=== PATIENT | female | born 1935 | race Caucasian/White ===

== ENCOUNTER 2020-05-14 15:05 | Inpatient (IN) | payer MEDICARE, OTHER ==
[~2020-05-14] VITALS: Ht 165.1 cm; Wt 81.5 kg
[2020-05-14] MEDS ORDERED: HYDR-4833 (15:32)
[2020-05-14] MEDS ORDERED: CLON0.1D7 TD ×2 (15:32→19:20)
[2020-05-14] MEDS ORDERED: HYDROcodone-ACET 5/325MG TAB PO ONE (15:45)
[2020-05-14] MEDS ORDERED: cefTRIAXone SOD 1,000 MG VL IM ONE (15:45)
[2020-05-14] MEDS ORDERED: CLINDAMYCIN 600MG IV 50 ML IV ONE (16:00)
[2020-05-14 16:38] LABS: Basophils # (auto) 0.1 10 ^3/uL (0-0.2); Eosinophils # (auto) 0.2 10 ^3/uL (0-0.8); Eosinophils % (auto) 2.8 % (0.0-7.0); Hematocrit 40.2 % (36.0-46.0); Hemoglobin 13.2 g/dL (12.2-16.2); Lymphocytes # (auto) 1.2 10 ^3/uL (0.4-5.4); Lymphocytes % (auto) 15.8 % (10.0-50.0); Mean Corpuscular Hemoglobin 28.9 pg (28.0-32.0); Mean Corpuscular Hgb Conc. 32.8 g/dL (32.0-36.0); Mean Corpuscular Volume 88.1 fL (80.0-100.0); Monocytes # (auto) 0.7 10 ^3/uL (0-1.3); Monocytes % (auto) 8.7 % (0.0-12.0); Neutrophils # (auto) 5.5 10 ^3/uL (1.6-8.6); Neutrophils % (auto) 71.7 % (37.0-80.0); Platelet Count (auto) 211 10^3/uL (140-450); Red Blood Cells 4.56 10^6/uL (4.0-5.20); Red Cell Distribution Width 13.4 % (11.8-14.3); White Blood Cell 7.6 10^3/uL (4.4-10.8)
[2020-05-14 16:54] LABS: Albumin 3.5 g/dL (3.4-5.0); Calcium 8.3 mg/dL (8.5-10.1); Potassium 4.1 mmol/L (3.5-5.1)
[2020-05-14 16:58] LABS: BUN/Creatinine Ratio 22.4; Bilirubin, Total 0.3 mg/dL (0.2-1.0); Total Protein 7.8 g/dL (6.4-8.2)
[2020-05-14 17:02] LABS: INR 0.96 (0.9-1.15); Partial Thromboplastin Time 26.2 sec (23.64-32.05)
[2020-05-14] MEDS: SODIUM CHLORIDE 0.9% 1,000 ML IV SCH (17:05)
[2020-05-14] MEDS ORDERED: DEXTROSE (50%) 50ML SYRG IV PRN (17:15)
[2020-05-14] MEDS ORDERED: LACTULOSE 20Gm/30ML SOLN PO PRN (17:15)
[2020-05-14] MEDS ORDERED: ACETAMINOPHEN 500 MG TAB PO PRN (17:15)
[2020-05-14] MEDS ORDERED: MORPHINE SULF INJ 2 MG/ML SYRINGE 1ML IV PRN (17:15)
[2020-05-14] MEDS ORDERED: NITROGLYCERIN 0.4 MG SL TAB SL PRN (17:15)
--- NOTE | 2020-05-14 18:20 | NUR ---
Telemetry admit from ER ALANNA MEI admitted to Telemetry unit NO SBAR received. Patient oriented to Mirtha costa RN, [facility], room 289 A, and unit policies regarding patient care and visiting hours. Patient now on continuous telemetry monitoring, tele box # [id number]. All questions and concerns addressed, patient verbalized understanding. Note:Bed locked in lowest position with two side rails up and call light in reach. Instructed patient to remain NPO until is it certain she is going to surgery at 1930, ass per Sharepoint Application Developer Lily.
[2020-05-14] MEDS ORDERED: PROPOFOL 10 MG/ML 20 ML IV ONE (18:59)
[2020-05-14] MEDS ORDERED: SODIUM CHLORIDE LOCK 10 ML ONE ×2 (18:59→20:28)
[2020-05-14] MEDS ORDERED: ONDANSETRON HCL 4 MG/2 ML VIAL ONE (18:59)
[2020-05-14] MEDS ORDERED: MIDAZOLAM HCL 1MG/1ML-2 ML VIAL ONE (18:59)
[2020-05-14] MEDS ORDERED: fentaNYL CITRATE 100 MCG/2 ML VL ONE ×2 (18:59→20:40)
--- NOTE | 2020-05-14 19:25 | NUR ---
Pt is out of unit for surgery. Patient is stable. No respiratory distress noted.
[2020-05-14] MEDS ORDERED: ceFAZolin 1GM/50ML 50 ML IV ONE (19:27)
[2020-05-14] MEDS ORDERED: ceFAZolin 1GM VL ONE (19:42)
[2020-05-14] MEDS ORDERED: ROPIVACAINE 0.5% (5MG/ML) 20ML AMPULE IJ ONE (19:42)
[2020-05-14] MEDS ORDERED: fentaNYL CITRATE 100 MCG/2 ML VL IV PRN (19:45)
[2020-05-14] MEDS ORDERED: ACCU-CHEK COMFORT CURVE STRIP VI ONE (19:45)
[2020-05-14] MEDS ORDERED: ONDANSETRON HCL 4 MG/2 ML VIAL IV PRN (19:45)
[2020-05-14] MEDS ORDERED: HYDROmorphone HCL 2 MG/ML VL IV PRN (19:45)
[2020-05-14] MEDS ORDERED: MORPHINE SULFATE 4 MG/ML SYR/VIAL IV PRN (19:45)
[2020-05-14 20:00] VITALS: BP 157/67
[2020-05-14] MEDS ORDERED: LABETALOL HCL 5 MG/ML ML 20ML VIAL IV ONE (20:09)
[2020-05-14] MEDS ORDERED: hydrALAZINE HCL 20 MG/ML VL ONE (20:09)
[2020-05-14] MEDS ORDERED: ACETAMINOPHEN IV 100 ML IV ONE (20:23)
[2020-05-14] MEDS ORDERED: MORPHINE SULFATE INJECTION 1 ML ONE (20:28)
[2020-05-14] MEDS ORDERED: ESMOLOL HCL 10 ML IV ONE (20:28)
[2020-05-14] MEDS ORDERED: NITROGLYCERIN 2% OINT 1GM PKG TD ONE (20:45)
[2020-05-14] MEDS ORDERED: METOPROLOL TARTRATE 1MG/1ML-5ML VIAL IV ONE (21:27)
[2020-05-14] MEDS ORDERED: ENOXAPARIN SOD 40 MG/0.4 ML SYRINGE SC ONE ×2 (21:30→21:31)
--- NOTE | 2020-05-14 21:40 | NUR ---
Pt back to unit. Patient back to unit from surgery. No respiratory distress. Patient on 4 LPM NC with respirations 16 bpm and SpO2 95%. BP 157/67 mmHg. Arousal by name. Fluffy dressing on R. Leg with small amount of drainage. Circled. Will continue to monitor as needed or Q30min. Addendum: 05/15/20 at 0201 by NAJMA HARPER RN RN Dressing on L.foot.
[2020-05-14 22:00] VITALS: BP 154/74
[2020-05-14] MEDS: InsuLIN REG 1unit/0.01ml Soln (100units/ml) SC SCH (22:00)
--- NOTE | 2020-05-14 22:30 | NUR ---
Refused med Patient blood glucose level is 242 mg/dL. Patient refused insulin saying that her body work to lower it to normal level. Education regarding possible complications from high glucose level and the ways how to lower blood glucose level were given to patient. Patient continues to refuse the treatment. Insulin shot was not given at this time. Will continue to monitor patient condition.
[2020-05-14] MEDS: ACCU-CHEK COMFORT CURVE STRIP VI SCH (23:05)
[2020-05-14] MEDS: CLINDAMYCIN 600MG IV 50 ML IV SCH (23:06)
[2020-05-15] VITALS (7 sets, daily range): BP systolic 147–168; BP diastolic 57–98
--- NOTE | 2020-05-15 00:15 | NUR ---
Blood pressure is 160/79. PAGED HOSPITALIST.
--- NOTE | 2020-05-15 00:50 | NUR ---
Spoke to hospitalist. Spoke to hospitalist regarding pt's blood pressure. New order received. Verified and read back.
[2020-05-15] MEDS: MORPHINE SULF INJ 2 MG/ML SYRINGE 1ML IV PRN ×4 (01:06→22:21)
[2020-05-15] MEDS: ONDANSETRON HCL 4 MG/2 ML VIAL IV PRN ×2 (01:07→08:08)
[2020-05-15] MEDS ORDERED: cloNIDine HCL 0.1 MG TAB PO ONE (01:30)
[2020-05-15] MEDS: SODIUM CHLORIDE 0.9% 1,000 ML IV SCH ×2 (03:10→13:06)
[2020-05-15] MEDS: CLINDAMYCIN 600MG IV 50 ML IV SCH ×3 (06:10→22:08)
[2020-05-15] MEDS: ACCU-CHEK COMFORT CURVE STRIP VI SCH ×4 (06:47→22:08)
[2020-05-15] MEDS: InsuLIN REG 1unit/0.01ml Soln (100units/ml) SC SCH ×4 (06:56→22:21)
--- NOTE | 2020-05-15 07:40 | NUR ---
Opening Shift Note Assumed care of patient, awake and alert. No S/S of distress/SOB or pain. Instructed on POC and to call for assist PRN, will continue to monitor for changes Q1hr and PRN. Bed locked in lowest position with two side rails up and call light in reach.
[2020-05-15] MEDS: cefTRIAXone 1GM/50ML D5W 50 ML IV SCH (08:08)
--- NOTE | 2020-05-15 10:00 | NUR ---
PATIENT COMPLAINING OF PAIN AND BURNING TO THE LEFT FOOT. MEDICATED PATIENT PER EMAR, ELEVATED FOOT, ASSESSED FOR CAP REFILL WHICH IS <3 SEC COLORING TO FOOT WNL PULSES BILATERALLY EQUAL. SUPPLIED AN ICE PACK FOR PATIENT AND PAGED DR MORRIS. WILL AWAIT RETURN CALL.
[2020-05-15] MEDS: HYDROcodone-ACET 10/325MG TAB PO PRN (10:05)
--- NOTE | 2020-05-15 10:50 | NUR ---
RECEIVED A CALL FROM DR MORRIS NOTIFIED HIM OF PATIENT C/O PAIN AND BURNING, PER DR MORRIS IT IS NORMAL. RECEIVED AN ORDER FOR FRIENDSHIP Q 6. WILL ORDER AND IMPLEMENT. I WILL PAGE AGAIN PER DR MORRIS REQUEST IF PATIENT CONTINUES TO HAVE PAIN.
--- NOTE | 2020-05-15 19:30 | NUR ---
Opening Shift Note Assumed care of patient. Patient is awake, alert, and oriented X 3. No S/S of respiratory distress or pain noted or reported. Respirations regular and non-labored. Bed locked in lowest position, HOB elevated, side rails up x 2, and call light is within each. Instructed on POC and to call for assistance as needed. Will continue to monitor for changes Q1hr and PRN.
--- NOTE | 2020-05-15 23:55 | NUR ---
IV removal/insertion R. Forearm IV site shows signs of leaking. Was discontinued with sterile technique. Catheter is fully intact. Pressure dressing applied to site. Patient tolerated procedure well. New IV access obtained via sterile technique by inserting 22 gauge catheter at R. forearm after 1 attempt. IV secured properly. No trauma to site. Patient tolerated procedure well.
[2020-05-16] MEDS: SODIUM CHLORIDE 0.9% 1,000 ML IV SCH ×3 (00:24→10:00)
[2020-05-16 05:58] VITALS: BP 154/63
[2020-05-16] MEDS: CLINDAMYCIN 600MG IV 50 ML IV SCH ×3 (06:13→22:37)
[2020-05-16] MEDS: ACCU-CHEK COMFORT CURVE STRIP VI SCH ×4 (06:38→22:36)
[2020-05-16] MEDS: InsuLIN REG 1unit/0.01ml Soln (100units/ml) SC SCH ×4 (06:46→22:40)
--- NOTE | 2020-05-16 06:56 | NUR ---
Refused med Patient blood glucose level is 175 mg/dL. Patient refused insulin saying that she does not take any pills or insulin to low high blood glucose level. Education regarding possible complications from high glucose level and the ways how to lower blood glucose level were given to patient. Patient continues to refuse the treatment. Insulin shot was not given at this time. Will continue to monitor patient condition.
[2020-05-16 08:00] VITALS: BP 160/71
[2020-05-16] MEDS: cefTRIAXone 1GM/50ML D5W 50 ML IV SCH (09:09)
[2020-05-16 09:30] VITALS: BP 160/71
[2020-05-16] MEDS: HYDROcodone-ACET 10/325MG TAB PO PRN (11:10)
[2020-05-16 13:00] VITALS: BP 136/76
--- NOTE | 2020-05-16 16:00 | NUR ---
PAGED DR Mariam MONSIVAIS RE: PT'S ELEVATED BLOOD PRESSURE NEW ORDERS RECEIVED AND CARRIED OUT.
[2020-05-16 16:53] VITALS: BP 166/96
--- NOTE | 2020-05-16 18:30 | NUR ---
WOUND CARE NOTE LEFT FOOT DRESSING CHANGED ORDERED BY . PT TOLERATED WELL. Addendum: 05/16/20 at 1902 by Keya Staley RN MODERATE BLEEDING NOTED ON OLD DRESSING. EDEMA ON WOUND SITE NOTED. NO REDNESS, CUT WELL APPROXIMATED.
[2020-05-16] MEDS: ONDANSETRON HCL 4 MG/2 ML VIAL IV PRN (18:57)
[2020-05-16] MEDS: MORPHINE SULF INJ 2 MG/ML SYRINGE 1ML IV PRN (18:58)
[2020-05-16 22:00] VITALS: BP 137/84
[2020-05-16] MEDS: METOPROLOL TARTRATE 50 MG TAB PO SCH (22:37)
--- NOTE | 2020-05-17 02:00 | NUR ---
PAIN Patient c/o 6/10 pain to left foot. Administered 1 mg Morphine per EMAR. Will continue to monitor.
[2020-05-17] MEDS: MORPHINE SULF INJ 2 MG/ML SYRINGE 1ML IV PRN ×2 (02:07→11:51)
[2020-05-17] MEDS: ONDANSETRON HCL 4 MG/2 ML VIAL IV PRN (02:07)
--- NOTE | 2020-05-17 02:30 | NUR ---
Pain reassessed Patient sleeping without s/s of distress or SOB. Will continue to monitor.
[2020-05-17] MEDS: SODIUM CHLORIDE 0.9% 1,000 ML IV SCH ×2 (05:05→15:14)
[2020-05-17 05:24] VITALS: BP 149/77
[2020-05-17] MEDS: CLINDAMYCIN 600MG IV 50 ML IV SCH ×3 (05:48→21:35)
[2020-05-17] MEDS: InsuLIN REG 1unit/0.01ml Soln (100units/ml) SC SCH ×4 (05:48→21:42)
[2020-05-17] MEDS: ACCU-CHEK COMFORT CURVE STRIP VI SCH ×4 (05:48→21:36)
[2020-05-17 09:23] VITALS: BP 156/86
[2020-05-17] MEDS: cefTRIAXone 1GM/50ML D5W 50 ML IV SCH (11:50)
[2020-05-17] MEDS: METOPROLOL TARTRATE 50 MG TAB PO SCH ×2 (11:50→21:36)
[2020-05-17 13:29] VITALS: BP 147/90
--- NOTE | 2020-05-17 14:17 | NUR ---
Est energy needs 5161-4023 kcal (20-25 kcal/kg BW 79.5kg) Est protein needs 57-74g (1-1.3g/kg IBW 57kg) Will reassess prn Addendum: 05/17/20 at [address] Amended: Links added.
[2020-05-17 17:00] VITALS: BP 163/98
--- NOTE | 2020-05-17 19:20 | NUR ---
Opening shift note Patient A&Ox4 sitting up in bed watching t.v. without SOB or s/s of distress. Discussed POC with patient who verbalized understanding. Left foot dressing CDI, BSC in place. IV patent and intact. Bed in lowest locked position with 2 side rails up, call light within reach will continue to monitor.
[2020-05-17 22:00] VITALS: BP 153/91
[2020-05-18] MEDS: MORPHINE SULF INJ 2 MG/ML SYRINGE 1ML IV PRN ×2 (01:00→08:36)
[2020-05-18] MEDS: SODIUM CHLORIDE 0.9% 1,000 ML IV SCH ×2 (01:08→08:35)
--- NOTE | 2020-05-18 01:08 | NUR ---
Pain Patient c/o 8 foot pain. Administered 1 mg Morphine per EMAR. Will continue to monitor.
--- NOTE | 2020-05-18 01:30 | NUR ---
Pain reassessed Patient resting with eyes closed, respirations even and non-labored with no s/s of distress. Will continue to monitor.
[2020-05-18 05:00] VITALS: BP 164/95
[2020-05-18] MEDS: ACCU-CHEK COMFORT CURVE STRIP VI SCH ×3 (06:04→17:00)
[2020-05-18] MEDS: CLINDAMYCIN 600MG IV 50 ML IV SCH ×2 (06:04→13:44)
[2020-05-18] MEDS: InsuLIN REG 1unit/0.01ml Soln (100units/ml) SC SCH ×3 (06:19→17:00)
--- NOTE | 2020-05-18 08:00 | NUR ---
Received patient alert and oriented x4, not in distress, clear sounds in bilateral lung lobes, RR=20 Sat=98%, deep breathing and coughing encouraged, demonstrated and verbalized understanding, denied SOB and chest pain, Heart R=64, abdomen soft with active BS, tolerated 100% of provided break fast, last BM=05/15/20, tolerating bed side commode with assistance, general skin intact, Lt. Foot wound covered with clean dry and intact dressing, sitting on bed and drinking coffee at this moment, head of bed elevated, bed on low position, rails up x2, call light on reach, pending ss consult, will continue monitoring.
[2020-05-18] MEDS: cefTRIAXone 1GM/50ML D5W 50 ML IV SCH (08:34)
[2020-05-18] MEDS: METOPROLOL TARTRATE 50 MG TAB PO SCH (08:35)
[2020-05-18] MEDS: ONDANSETRON HCL 4 MG/2 ML VIAL IV PRN (08:36)
[2020-05-18 09:02] VITALS: BP 160/86
[2020-05-18] MEDS ORDERED: cloNIDine HCL 0.1 MG TAB PO PRN (12:00)
[2020-05-18 12:24] VITALS: BP 188/86
--- NOTE | 2020-05-18 14:18 | NUR ---
PENDING SS FOR D/C HOME WITH HOME HEALTH PROCESS, SS ALEXIA WAS CONTACTED FOR FOLLOW UP, PROCESS IS PENDING REPORTED, WILL CONTINUE MONITORING.
[2020-05-18 17:02] VITALS: BP 137/74
--- NOTE | 2020-05-18 17:21 | NUR ---
SS CONTACTED FOR D/C PROCESS FOLLOW UP D/C WITH [facility] IS ARRANGED REPORTED, WAITING FOR APPROVAL SS NOTES,
--- NOTE | 2020-05-18 17:40 | NUR ---
REFUSED [address] [facility], HOME HEALTH ARRANGEMENT DONE REPORTED, DR. MONSIVAIS WAS CONTACTED AND NOTIFIED, RESUMED D/C HOME ORDERED, SON WAS CONTACTED ON [phone] AND NOTIFIED.
--- NOTE | 2020-05-18 17:43 | NUR ---
assessment Patient is a 84 year old female who is alert and oriented. Patients cognitive abilities are intact. Prior to admission patient lived home with family and functioned independently. Patient informed me she is able to care for her own ADLs. Per patient she will return home to her prior living arrangements post discharge and family will transport her home. Patient has a fww and 02 for home use. Patients PCP is Dr Gaines. I informed patient she has a consult for home health wound care. Per patient she has no preference on who provides service. I called patients son Jorden and informed him of the home health order and per Jorden he has no preference and to go with who the doctor recommends. Per Dr Sarabia send to [facility]. Per Patricia service will start tomorrow 05/19/2020. Jorden has been notified. I informed patient she has a right to speak to a social work case manager regarding all care. I informed patient she has a right to participate in any and all discharge planning. Patient has a POA and advanced directive. Patient verbalized understanding and agreed to discharge plan. Addendum: 05/18/20 at 1747 by Vilma HUITRON Amended: Links added.
--- NOTE | 2020-05-18 17:46 | NUR ---
DR. LOI KELLER WAS CONTACTED FOR D/C UPDATED AND FOLLOW UP, D/C WAS HOLD UNTIL AM ORDERED, PATIENT AND SON UPDATED AND NOTIFIED, NOT IN DISTRESS, SITTING ON BED, TALKING ON THE PHONE AT THIS MOMENT, WILL CONTINUE MONITORING. Addendum: 05/18/20 at 1930 by Lakshmi White RN WRONG TIME
--- NOTE | 2020-05-18 18:40 | NUR ---
DR. LOI KELLER WAS CONTACTED FOR D/C UPDATED AND FOLLOW UP, D/C WAS HOLD UNTIL AM ORDERED, PATIENT AND SON UPDATED AND NOTIFIED, NOT IN DISTRESS, SITTING ON BED, TALKING ON THE PHONE AT THIS MOMENT, WILL CONTINUE MONITORING.
--- NOTE | 2020-05-18 19:27 | NUR ---
D/C INSTRUCTIONS AND EDUCATION PROVIDED, PCP FOLLOW UP ARRANGEMENT INFORMATION PROVIDED, [facility] ARRANGEMENT WILL RESUME ON 05/19/20 AD REPORTED, D/C TELE AND IV SITE, TOLERATED WELL, NOT IN DISTRESS, DENIED PAIN, T=97.6 RR=20 SAT=96% P=68 DVN=304/57, D/C HOME ON WC ACCOMPANIED BY SON, TOOK ALL BELONGINGS AND LEFT NOTHING BEHIND.
--- NOTE | 2020-05-19 10:49 | NUR ---
THUY JARVIS PATIENT'S SON CONTACTED ON [phone] FOR NEW PRESCRIPTIONS OF LEVAQUIN AND AUGMENTIN PO TELEMARKETING [employer] AND TO STOP CLINDAMYCIN AND KEFLEX PO ORDERED BY Chiquita KELLER, SON VERBALIZED UNDERSTANDING AND WILL TELEMARKETING [employer] THE NEW PRESCRIPTIONS REPORTED, WAITING FOR THE SONE TO COME AND TELEMARKETING [employer] THE PRESCRIPTIONS.
--- NOTE | 2020-05-19 15:21 | NUR ---
SONE DID NOT INSPECTOR CRYSTAL THE PRESCRIPTIONS PROMISED, WAITING FOR SONE TO INSPECTOR CRYSTAL THE PRESCRIPTIONS.
== END 2020-05-18 19:14 | disposition home health service (06) | DRG 605 ==
LOC: ER 15:05 → TELE-WESTW 15:06
PROVIDERS: ADMIT Internal Medicine; ATTEND Family Medicine
PROC: 0Y9N0ZZ Drainage of Left Foot, Open Approach (ICD-10-PCS; principal; 2020-05-14 19:41)
DX: S90.32XA Contusion of left foot, initial encounter (principal); L03.116 Cellulitis of left lower limb; E11.65 Type 2 diabetes mellitus with hyperglycemia; N18.3 Chronic kidney disease, stage 3 (moderate); M17.12 Unilateral primary osteoarthritis, left knee; M77.30 Calcaneal spur, unspecified foot; I25.10 Atherosclerotic heart disease of native coronary artery without angina pectoris; E11.22 Type 2 diabetes mellitus with diabetic chronic kidney disease; I12.9 Hypertensive chronic kidney disease with stage 1 through stage 4 chronic kidney disease, or unspecified chronic kidney disease; Y93.89 Activity, other specified; Z95.1 Presence of aortocoronary bypass graft; Z95.2 Presence of prosthetic heart valve; Y92.89 Other specified places as the place of occurrence of the external cause; Y99.8 Other external cause status; W20.8XXA Other cause of strike by thrown, projected or falling object, initial encounter
CPT/HCPCS: 36415; 71045; 73700; 80053; 82962; 83036; 84484; 85025; 85610; 85652; 85730; 87070; 87075; 87077; 87186; 87205; 93005; 96365; 96372; G0378; J0131; J0690; J0696; J1815; J2250; J2405; J2704; J3490